=== PATIENT | female | born 1975 | race African-American/Black ===

== ENCOUNTER 2020-09-13 13:04 | Inpatient (IN) | payer OTHER ==
[2020-09-13] MEDS ORDERED: MAG HYDROX/AL HYDROX/SIMETH 30 ML UNIT-DOSE CUP PO PRN (18:35)
[2020-09-13] MEDS ORDERED: NICOTINE POLACRILEX 2 MG GUM BUC PRN (18:35)
[2020-09-13] MEDS ORDERED: MAGNESIUM CITRATE 300 ML BOTTLE PO PRN (18:35)
[2020-09-13] MEDS ORDERED: LOPERAMIDE HCL 2 MG CAPSULE PO PRN (18:35)
[2020-09-13] MEDS ORDERED: ACETAMINOPHEN 325 MG TABLET (FP) PO PRN (18:35)
[2020-09-13] MEDS ORDERED: MAGNESIUM HYDROX 2400MG/30ML ORAL SUSPENSION 30 ML CUP PO PRN (18:35)
[2020-09-13] MEDS ORDERED: P-EPHED 60MG/TRIPROLIDI 2.5MG TABLET PO PRN (18:35)
[2020-09-13 20:48] VITALS: BMI 20.5
[2020-09-13] MEDS: THIAMINE HCL 100 MG TABLET (FP) PO SCH (21:55)
[2020-09-13] MEDS: MELATONIN 5 MG TABLETS PO SCH (21:55)
[2020-09-13] MEDS: hydrOXYzine PAMOATE 25 MG CAPSULE (FP) PO PRN (21:55)
[2020-09-14] MEDS: PRENATAL VITAMINS W/ FOLIC ACID TABLET (FP) PO SCH (09:30)
[2020-09-14] MEDS: NICOTINE 14 MG/24 HOURS TOPICAL PATCH TD SCH (09:31)
[2020-09-14] MEDS: IBUPROFEN 400 MG TABLET (FP) PO PRN (09:32)
[2020-09-14] MEDS: MENTHOL/PHENOL 1 EACH UD MM PRN (09:32)
[2020-09-14] MEDS: MELATONIN 5 MG TABLETS PO SCH (21:02)
[2020-09-14] MEDS: THIAMINE HCL 100 MG TABLET (FP) PO SCH (21:02)
[2020-09-14] MEDS: traZODone HCL 50 MG TABLET (FP) PO SCH (21:03)
[2020-09-15] MEDS: guaiFENesin 200 MG/10 ML 10 ML UNIT-DOSE CUPS PO PRN (06:35)
[2020-09-15] MEDS: MENTHOL/PHENOL 1 EACH UD MM PRN ×2 (06:35→21:03)
[2020-09-15] MEDS: NICOTINE 14 MG/24 HOURS TOPICAL PATCH TD SCH (09:37)
[2020-09-15] MEDS: PRENATAL VITAMINS W/ FOLIC ACID TABLET (FP) PO SCH (09:37)
[2020-09-15] MEDS: MELATONIN 5 MG TABLETS PO SCH (21:01)
[2020-09-15] MEDS: THIAMINE HCL 100 MG TABLET (FP) PO SCH (21:01)
[2020-09-15] MEDS: traZODone HCL 50 MG TABLET (FP) PO SCH (21:02)
[2020-09-16] MEDS: MENTHOL/PHENOL 1 EACH UD MM PRN (06:19)
[2020-09-16] MEDS: guaiFENesin 200 MG/10 ML 10 ML UNIT-DOSE CUPS PO PRN (06:19)
[2020-09-16] MEDS: NICOTINE 14 MG/24 HOURS TOPICAL PATCH TD SCH (09:43)
[2020-09-16] MEDS: PRENATAL VITAMINS W/ FOLIC ACID TABLET (FP) PO SCH (09:43)
[2020-09-16] MEDS: traZODone HCL 50 MG TABLET (FP) PO SCH (21:11)
[2020-09-16] MEDS: THIAMINE HCL 100 MG TABLET (FP) PO SCH (21:11)
[2020-09-16] MEDS: MELATONIN 5 MG TABLETS PO SCH (21:11)
[2020-09-17] MEDS: PRENATAL VITAMINS W/ FOLIC ACID TABLET (FP) PO SCH (09:33)
[2020-09-17] MEDS: NICOTINE 14 MG/24 HOURS TOPICAL PATCH TD SCH (09:33)
[2020-09-17] MEDS: guaiFENesin 200 MG/10 ML 10 ML UNIT-DOSE CUPS PO PRN (09:35)
[2020-09-17 10:31] LABS: CALCIUM 8.3 mg/dL (8.5-10.1)
[2020-09-17 10:32] LABS: ALBUMIN 2.7 g/dl (3.4-5.0); BLOOD UREA NITROGEN 12.1 mg/dL (7-18)
[2020-09-17 10:35] LABS: CREATININE 0.7 mg/dL (0.55-1.3)
[2020-09-17 10:37] LABS: BILIRUBIN,TOTAL 0.3 mg/dL (0.2-1); TOT PROT 7.2 g/dl (6.4-8.2)
[2020-09-17 10:38] LABS: BASO % 0.9 % (0-2.0); EOS % 12.5 % (0-4.5); HEMATOCRIT 33.8 % (32.4-45.2); HEMOGLOBIN 10.4 GM/dL (10.7-15.3); LYMPH % 36.7 % (8-40); MCH 24.9 pg (25.7-33.7); MCHC 30.7 g/dl (32.0-36.0); MEAN PLT VOLUME 9.9 fl (7.5-11.1); MONO % 16.3 % (3.8-10.2); NEUT % 33.6 % (42.8-82.8); PLATELET COUNT 203 K/MM3 (134-434); RBC 4.18 M/mm3 (3.60-5.2); RDW 14.4 % (11.6-15.6); WHITE BLOOD COUNT 4.3 K/mm3 (4.0-10.0)
[2020-09-17] MEDS ORDERED: ALBUTEROL SO4 HFA INHALER IH PRN (13:54)
[2020-09-17] MEDS: THIAMINE HCL 100 MG TABLET (FP) PO SCH (21:01)
[2020-09-17] MEDS: MELATONIN 5 MG TABLETS PO SCH (21:01)
[2020-09-17] MEDS: traZODone HCL 50 MG TABLET (FP) PO SCH (21:02)
[2020-09-17] MEDS: hydrOXYzine PAMOATE 25 MG CAPSULE (FP) PO PRN (21:02)
[2020-09-18] MEDS: PRENATAL VITAMINS W/ FOLIC ACID TABLET (FP) PO SCH (10:06)
[2020-09-18] MEDS: NICOTINE 14 MG/24 HOURS TOPICAL PATCH TD SCH (10:06)
[2020-09-18] MEDS: THIAMINE HCL 100 MG TABLET (FP) PO SCH (21:19)
[2020-09-18] MEDS: MELATONIN 5 MG TABLETS PO SCH (21:19)
[2020-09-18] MEDS: traZODone HCL 50 MG TABLET (FP) PO SCH (21:19)
[2020-09-19] MEDS: NICOTINE 14 MG/24 HOURS TOPICAL PATCH TD SCH (09:34)
[2020-09-19] MEDS: PRENATAL VITAMINS W/ FOLIC ACID TABLET (FP) PO SCH (09:34)
[2020-09-19] MEDS: MELATONIN 5 MG TABLETS PO SCH (21:28)
[2020-09-19] MEDS: traZODone HCL 50 MG TABLET (FP) PO SCH (21:28)
[2020-09-19] MEDS: THIAMINE HCL 100 MG TABLET (FP) PO SCH (21:28)
[2020-09-20] MEDS: PRENATAL VITAMINS W/ FOLIC ACID TABLET (FP) PO SCH (09:43)
[2020-09-20] MEDS: NICOTINE 14 MG/24 HOURS TOPICAL PATCH TD SCH (09:44)
[2020-09-20] MEDS: traZODone HCL 50 MG TABLET (FP) PO SCH (21:12)
[2020-09-20] MEDS: THIAMINE HCL 100 MG TABLET (FP) PO SCH (21:12)
[2020-09-20] MEDS: MELATONIN 5 MG TABLETS PO SCH (21:12)
[2020-09-21] MEDS: PRENATAL VITAMINS W/ FOLIC ACID TABLET (FP) PO SCH (09:57)
[2020-09-21] MEDS: NICOTINE 14 MG/24 HOURS TOPICAL PATCH TD SCH (09:57)
[2020-09-21] MEDS: MENTHOL/PHENOL 1 EACH UD MM PRN (09:59)
[2020-09-21] MEDS: guaiFENesin 200 MG/10 ML 10 ML UNIT-DOSE CUPS PO PRN (09:59)
[2020-09-21] MEDS: hydrOXYzine PAMOATE 25 MG CAPSULE (FP) PO PRN (21:29)
[2020-09-21] MEDS: MELATONIN 5 MG TABLETS PO SCH (21:29)
[2020-09-21] MEDS: traZODone HCL 50 MG TABLET (FP) PO SCH (21:29)
[2020-09-21] MEDS: THIAMINE HCL 100 MG TABLET (FP) PO SCH (21:29)
[2020-09-22] MEDS: PRENATAL VITAMINS W/ FOLIC ACID TABLET (FP) PO SCH (09:57)
[2020-09-22] MEDS: NICOTINE 14 MG/24 HOURS TOPICAL PATCH TD SCH (09:57)
[2020-09-22] MEDS: THIAMINE HCL 100 MG TABLET (FP) PO SCH (21:32)
[2020-09-22] MEDS: MELATONIN 5 MG TABLETS PO SCH (21:32)
[2020-09-22] MEDS: traZODone HCL 50 MG TABLET (FP) PO SCH (21:32)
[2020-09-23] MEDS: PRENATAL VITAMINS W/ FOLIC ACID TABLET (FP) PO SCH (09:54)
[2020-09-23] MEDS: NICOTINE 14 MG/24 HOURS TOPICAL PATCH TD SCH (09:55)
[2020-09-23] MEDS: traZODone HCL 50 MG TABLET (FP) PO SCH (21:12)
[2020-09-23] MEDS: THIAMINE HCL 100 MG TABLET (FP) PO SCH (21:12)
[2020-09-23] MEDS: MELATONIN 5 MG TABLETS PO SCH (21:12)
[2020-09-24] MEDS: PRENATAL VITAMINS W/ FOLIC ACID TABLET (FP) PO SCH (09:27)
[2020-09-24] MEDS: NICOTINE 14 MG/24 HOURS TOPICAL PATCH TD SCH (09:27)
[2020-09-24] MEDS: hydrOXYzine PAMOATE 25 MG CAPSULE (FP) PO PRN ×2 (09:27→21:35)
[2020-09-24] MEDS: MENTHOL/PHENOL 1 EACH UD MM PRN (09:30)
[2020-09-24] MEDS: guaiFENesin 200 MG/10 ML 10 ML UNIT-DOSE CUPS PO PRN (09:30)
[2020-09-24] MEDS: traZODone HCL 50 MG TABLET (FP) PO SCH (21:34)
[2020-09-24] MEDS: MELATONIN 5 MG TABLETS PO SCH (21:34)
[2020-09-24] MEDS: THIAMINE HCL 100 MG TABLET (FP) PO SCH (21:34)
[2020-09-25] MEDS: PRENATAL VITAMINS W/ FOLIC ACID TABLET (FP) PO SCH (09:50)
[2020-09-25] MEDS: hydrOXYzine PAMOATE 25 MG CAPSULE (FP) PO PRN ×2 (09:50→21:07)
[2020-09-25] MEDS: NICOTINE 14 MG/24 HOURS TOPICAL PATCH TD SCH (09:51)
[2020-09-25] MEDS: traZODone HCL 50 MG TABLET (FP) PO SCH (21:07)
[2020-09-25] MEDS: THIAMINE HCL 100 MG TABLET (FP) PO SCH (21:07)
[2020-09-25] MEDS: MELATONIN 5 MG TABLETS PO SCH (21:07)
[2020-09-26] MEDS: NICOTINE 14 MG/24 HOURS TOPICAL PATCH TD SCH (09:32)
[2020-09-26] MEDS: PRENATAL VITAMINS W/ FOLIC ACID TABLET (FP) PO SCH (09:32)
[2020-09-26] MEDS: hydrOXYzine PAMOATE 25 MG CAPSULE (FP) PO PRN ×2 (09:33→21:12)
[2020-09-26] MEDS: IBUPROFEN 400 MG TABLET (FP) PO PRN (09:34)
[2020-09-26] MEDS ORDERED: MASKS NR ONE (13:36)
[2020-09-26] MEDS: traZODone HCL 50 MG TABLET (FP) PO SCH (21:12)
[2020-09-26] MEDS: THIAMINE HCL 100 MG TABLET (FP) PO SCH (21:12)
[2020-09-26] MEDS: MELATONIN 5 MG TABLETS PO SCH (21:12)
[2020-09-27] MEDS: PRENATAL VITAMINS W/ FOLIC ACID TABLET (FP) PO SCH (09:44)
[2020-09-27] MEDS: NICOTINE 14 MG/24 HOURS TOPICAL PATCH TD SCH (09:45)
[2020-09-27] MEDS: hydrOXYzine PAMOATE 25 MG CAPSULE (FP) PO PRN ×2 (09:45→21:11)
[2020-09-27] MEDS: traZODone HCL 50 MG TABLET (FP) PO SCH (21:10)
[2020-09-27] MEDS: MELATONIN 5 MG TABLETS PO SCH (21:11)
[2020-09-27] MEDS: THIAMINE HCL 100 MG TABLET (FP) PO SCH (21:11)
[2020-09-28] MEDS: PRENATAL VITAMINS W/ FOLIC ACID TABLET (FP) PO SCH (10:05)
[2020-09-28] MEDS: hydrOXYzine PAMOATE 25 MG CAPSULE (FP) PO PRN ×2 (10:05→21:21)
[2020-09-28] MEDS: NICOTINE 14 MG/24 HOURS TOPICAL PATCH TD SCH (10:06)
[2020-09-28] MEDS: traZODone HCL 50 MG TABLET (FP) PO SCH (21:20)
[2020-09-28] MEDS: THIAMINE HCL 100 MG TABLET (FP) PO SCH (21:20)
[2020-09-28] MEDS: MELATONIN 5 MG TABLETS PO SCH (21:20)
[2020-09-29] MEDS: hydrOXYzine PAMOATE 25 MG CAPSULE (FP) PO PRN ×2 (10:04→21:12)
[2020-09-29] MEDS: NICOTINE 14 MG/24 HOURS TOPICAL PATCH TD SCH (10:04)
[2020-09-29] MEDS: PRENATAL VITAMINS W/ FOLIC ACID TABLET (FP) PO SCH (10:04)
[2020-09-29] MEDS: MELATONIN 5 MG TABLETS PO SCH (21:12)
[2020-09-29] MEDS: THIAMINE HCL 100 MG TABLET (FP) PO SCH (21:12)
[2020-09-29] MEDS: traZODone HCL 50 MG TABLET (FP) PO SCH (21:12)
[2020-09-30 07:14] VITALS: BP 108/61; PULSE 79; TEMP 98.2
[2020-09-30] MEDS: PRENATAL VITAMINS W/ FOLIC ACID TABLET (FP) PO SCH (09:10)
[2020-09-30] MEDS: NICOTINE 14 MG/24 HOURS TOPICAL PATCH TD SCH (09:10)
[2020-09-30] MEDS: hydrOXYzine PAMOATE 25 MG CAPSULE (FP) PO PRN (09:10)
[2020-09-30] MEDS ORDERED: PT OWN MED DRAWER 7, Y5N ONE (09:19)
== END 2020-09-30 09:54 | disposition home or self-care (01) | DRG 772 ==
LOC: YASAS 13:04 → Y3E 20:11 → Y3W 09-19 16:28
PROVIDERS: ADMIT Allergy & Immunology; ATTEND Allergy & Immunology
PROC: HZ42ZZZ Group Counseling for Substance Abuse Treatment, Cognitive-Behavioral (ICD-10-PCS; principal; 2020-09-13)
DX: F10.20 Alcohol dependence, uncomplicated (principal); F14.20 Cocaine dependence, uncomplicated; F17.210 Nicotine dependence, cigarettes, uncomplicated; F19.24 Other psychoactive substance dependence with psychoactive substance-induced mood disorder; F32.9 Major depressive disorder, single episode, unspecified; Z21 Asymptomatic human immunodeficiency virus [HIV] infection status; J45.20 Mild intermittent asthma, uncomplicated; D64.9 Anemia, unspecified; G47.00 Insomnia, unspecified; Z91.013 Allergy to seafood; Z56.0 Unemployment, unspecified; Z59.0 Homelessness
CPT/HCPCS: 36415; 80053; 85025; 86780; 93005; 93010; C9803; U0003